=== PATIENT | female | born 2000 | race African-American/Black ===

== ENCOUNTER 2020-02-22 08:51 | Emergency (ER) | payer OTHER ==
[~2020-02-22] VITALS: Ht 170.2 cm; Wt 66.7 kg
[2020-02-22 09:10] VITALS: Ht 170.2 cm; Wt 66.7 kg
[2020-02-22 10:12] LABS: CALCIUM 9.4 mg/dL (8.5-10.1); CARBON DIOXIDE 27.2 mmol/L (21-32); CHLORIDE SERUM 104 mmol/L (98-107); CREATININE SERUM 0.9 mg/dL (0.6-1.0); GFR1 > 60 mL/min; GLUCOSE SERUM 91 mg/dL (74-106); POTASSIUM SERUM 4.3 mmol/L (3.5-5.1); SODIUM SERUM 138 mmol/L (136-145)
[2020-02-22 10:51] VITALS: BP 106/76
== END 2020-02-22 10:51 | disposition home or self-care (01) ==
LOC: ED 08:51
PROVIDERS: Emergency Medicine
DX: R07.89 Other chest pain (principal)

== ENCOUNTER 2020-05-24 12:40 | Emergency (ER) | payer OTHER ==
[~2020-05-24] VITALS: Ht 170.2 cm; Wt 68.9 kg
[2020-05-24 12:48] VITALS: Ht 170.2 cm; Wt 68.9 kg
[2020-05-24 15:03] VITALS: BP 131/84
== END 2020-05-24 15:03 | disposition home or self-care (01) ==
LOC: ED 12:40
DX: F41.9 Anxiety disorder, unspecified (principal); R07.89 Other chest pain; R12 Heartburn

== ENCOUNTER 2020-06-08 05:48 | Emergency (ER) | payer OTHER ==
[~2020-06-08] VITALS: Ht 167.6 cm; Wt 69.6 kg
[2020-06-08 05:59] VITALS: Ht 167.6 cm; Wt 69.6 kg
[2020-06-08 06:52] LABS: BASOPHIL % 0.4 % (0.2-1.3); PLATELET COUNT 288 x10^3mcL (179-408)
[2020-06-08 07:11] LABS: CHLORIDE SERUM 104 mmol/L (98-107); POTASSIUM SERUM 4.2 mmol/L (3.5-5.1); SODIUM SERUM 137 mmol/L (136-145)
[2020-06-08 07:12] LABS: CALCIUM 8.7 mg/dL (8.5-10.1); CREATININE SERUM 0.9 mg/dL (0.6-1.0); GFR1 > 60 mL/min; GLUCOSE SERUM 86 mg/dL (74-106)
[2020-06-08 07:17] LABS: AMPHETAMINE QUAL UR NONE DETECTED (See below)
[2020-06-08 07:21] LABS: ALBUMIN 3.8 g/dL (3.4-5.0); ALKALINE PHOSPHATASE 51 U/L (46-116); ALT/SGPT 88 U/L (14-59); AST/SGOT 321 U/L (15-37)
[2020-06-08 08:42] VITALS: BP 109/68
== END 2020-06-08 08:40 | disposition left against medical advice (07) ==
LOC: ED 05:48
PROVIDERS: Emergency Medicine
DX: R07.89 Other chest pain (principal); R42 Dizziness and giddiness; R20.2 Paresthesia of skin